=== PATIENT | male | born 1990 | race American Indian/Alaskan Native ===

== ENCOUNTER 2016-07-23 22:26 | Emergency (ER) | payer OTHER, MEDICAID ==
[2016-07-23 22:27] VITALS: BMI 36.5
[2016-07-23 22:50] VITALS: RESP 16
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
[2016-07-24 02:20] VITALS: BP 141/76; PULSE 64; TEMP 97.6
[2016-07-24 03:22] VITALS: O2SAT 98
--- NOTE | 2016-07-24 07:29 | CT ---
PROCEDURE: CT Cervical Spine without contrast HISTORY: Neck pain COMPARISON: None available. TECHNIQUE: Axial computed tomography images were obtained of the cervical spine without the use of intravenous contrast. Coronal and sagittal reformatted images were created and reviewed. Radiation dose: Total exam DLP = 656.29 mGy-cm. This CT exam was performed using one or more of the following dose reduction techniques: Automated exposure control, adjustment of the mA and/or kV according to patient size, and/or use of iterative reconstruction technique. FINDINGS: VERTEBRAE: No fracture. Normal alignment. No destructive bony lesion. Straightening of normal lordotic curvature may indicate muscular spasm. DISCS/SPINAL CANAL/NEURAL FORAMINA: No significant central canal or neural foraminal stenosis. Discs heights are grossly preserved. PARASPINAL SOFT TISSUES: Unremarkable. OTHER FINDINGS: None. IMPRESSION: No fracture/dislocation. Possible muscular spasm. Otherwise unremarkable. Preliminary interpretation of this examination was reported by [facility] at 12:42 a.m. on 07/24/2016. There is concurrence of this report with the preliminary interpretation.
--- NOTE | 2016-07-24 08:53 | RAD ---
PROCEDURE: Radiographs of the Lumbar Spine. HISTORY: back pain COMPARISON: No prior. FINDINGS: BONES: Normal alignment. No listhesis. No fracture. DISC SPACES: Unremarkable. OTHER FINDINGS: None. IMPRESSION: Unremarkable radiographs of the lumbar spine.
== END 2016-07-24 02:00 | disposition home or self-care (01) ==
LOC: ED 22:26
DX: M54.9 Dorsalgia, unspecified (principal); M54.2 Cervicalgia
CPT/HCPCS: 72110; 72125; 96372; 99284; J1885